=== PATIENT | male | born 1980 | race American Indian/Alaskan Native ===

== ENCOUNTER 2021-09-28 11:37 | Emergency (ER) | payer OTHER ==
[2021-09-28] MEDS ORDERED: SODIUM CHLORIDE 0.9% 1000 ML 1,000 ML IV ONE (12:50)
[2021-09-28] MEDS ORDERED: ONDANSETRON 4 MG/2 ML INJ IV ONE (12:50)
[2021-09-28] MEDS ORDERED: DICYCLOMINE 20 MG TAB PO ONE (12:50)
--- NOTE | 2021-09-28 12:56 | Emergency Department Report ---
HPI - General Chief Complaint: Abdominal Pain Time Seen by Provider: 09/28/21 12:23 - HPI HPI: 41-year-old -[place] male presents to the emergency department with complaint of a 2 to 3-day history of generalized abdominal cramping, nausea, and some diarrhea or loose stools. The patient also says that he has had a few episodes of bright red rectal bleeding with bowel movements. He says that the abdominal cramping pain will build up until he has to use the bathroom, have a bowel movement. After having a bowel movement he has improvement of his discomfort. He also complains of waking up yesterday with some chills, but denies any fever. He has a past medical history of HIV with an undetectable level. He took some Pepto-Bismol and Aleve for his symptoms without much relief. ED Past Medical Hx - Medications Home Medications: Home Medications Medication Instructions Recorded Confirmed Last Taken Type Dicyclomine [Bentyl] 10 mg PO QID PRN #20 capsule 09/28/21 Unknown Rx Metoclopramide [Reglan] 10 mg PO TID PRN #15 tab 09/28/21 Unknown Rx ED Review of Systems ROS: Stated complaint: STOMACH PAIN, NAUSEA, RECTAL BLEEDING Other details as noted in HPI Comment: All other systems reviewed and negative Constitutional: denies: chills, fever Eyes: denies: eye pain, vision change ENT: denies: ear pain, throat pain Respiratory: denies: cough, shortness of breath Cardiovascular: denies: chest pain, palpitations Gastrointestinal: abdominal pain, nausea, hematochezia Genitourinary: denies: dysuria, discharge Musculoskeletal: denies: back pain, arthralgia Skin: denies: rash, lesions Neurological: denies: headache, weakness Physical Exam - Physical Exam Vital Signs: Vital Signs 09/28/21 11:40 Temperature 98.2 F Pulse Rate 83 Respiratory 16 Rate Blood Pressure 146/103 O2 Sat by Pulse 95 Oximetry Physical Exam: GENERAL: The patient is well-developed well-nourished. HENT: Normocephalic. Atraumatic. Patient has moist mucous membranes. EYES: Extraocular motions are intact. NECK: Supple. Trachea is midline. CHEST/LUNGS: Clear to auscultation. There is no respiratory distress noted. HEART/CARDIOVASCULAR: Regular. There is no tachycardia. There is no murmur. ABDOMEN: Abdomen is soft. Mild generalized abdominal tenderness to palpation. No guarding. Patient has normal bowel sounds. There is no abdominal distention. SKIN: Skin is warm and dry. NEURO: The patient is awake, alert, and oriented. The patient is cooperative. The patient has no focal neurologic deficits. Normal speech. MUSCULOSKELETAL: There is no tenderness or deformity. There is no limitation range of motion. BACK: No CVA tenderness to palpation. RECTAL: Deferred ED Course Vital Signs 09/28/21 11:40 Temperature 98.2 F Pulse Rate 83 Respiratory 16 Rate Blood Pressure 146/103 O2 Sat by Pulse 95 Oximetry ED Medical Decision Making - Lab Data Result diagrams: 09/28/21 12:46 09/28/21 12:46 Lab Results 09/28/21 09/28/21 09/28/21 Range/Units 12:46 12:46 12:46 WBC 8.4 (4.5-11.0) K/mm3 RBC 5.39 H (3.65-5.03) M/mm3 Hgb 16.6 H (11.8-15.2) gm/dl Hct 49.1 H (35.5-45.6) % MCV 91 (84-94) fl MCH 31 (28-32) pg MCHC 34 (32-34) % RDW 13.7 (13.2-15.2) % Plt Count 267 (140-440) K/mm3 Lymph % (Auto) 14.3 (13.4-35.0) % Jones % (Auto) 9.6 H (0.0-7.3) % Eos % (Auto) 0.5 (0.0-4.3) % Baso % (Auto) 0.3 (0.0-1.8) % Lymph # (Auto) 1.2 (1.2-5.4) K/mm3 Jones # (Auto) 0.8 (0.0-0.8) K/mm3 Eos # (Auto) 0.0 (0.0-0.4) K/mm3 Baso # (Auto) 0.0 (0.0-0.1) K/mm3 Seg Neutrophils % 75.3 H (40.0-70.0) % Seg Neutrophils # 6.3 (1.8-7.7) K/mm3 PT 13.1 (12.2-14.9) Sec. INR 0.89 (0.87-1.13) Sodium 141 (137-145) mmol/L Potassium 3.3 L (3.6-5.0) mmol/L Chloride 103.7 (98-107) mmol/L Carbon Dioxide 22 (22-30) mmol/L Anion Gap 19 mmol/L BUN 6 L (9-20) mg/dL Creatinine 0.9 (0.8-1.3) mg/dL Estimated GFR > 60 ml/min BUN/Creatinine Ratio 7 % Glucose 110 H (75-100) mg/dL Calcium 9.4 (8.4-10.2) mg/dL Total Bilirubin 0.80 (0.1-1.2) mg/dL Direct Bilirubin < 0.2 (0-0.2) mg/dL Indirect Bilirubin 0.6 mg/dL AST 9 (5-40) units/L ALT 12 (7-56) units/L Alkaline Phosphatase 76 (35-129) units/L Total Protein 7.9 (6.3-8.2) g/dL Albumin 4.6 (3.9-5) g/dL Albumin/Globulin Ratio 1.4 % Lipase 40 (13-60) units/L - Radiology Data Radiology results: image reviewed interpreted by me: Chest x-ray does not show any acute process. There are no pleural effusions, obvious pneumonia and there is no pneumothorax. No widened mediastinum. Abdominal x-ray shows nonspecific nonobstructive bowel gas. No free air. There are some scattered air-fluid levels. - Medical Decision Making This patient presents with a 2 to 3-day history of some abdominal cramping pain, nausea without vomiting, diarrhea. On examination the abdomen is soft, nondistended and nontoxic in appearance. The patient does not appear in any acute distress. Patient's labs have been mostly unremarkable including CBC, metabolic panel and urinalysis. He did have some mild hypokalemia that was replaced with potassium chloride. Abdominal x-ray shows some air-fluid levels but otherwise does not have any obstructive pattern and there is no free air. Patient was given IV fluid, Bentyl, and 2 different antiemetics. Upon reevaluation he is feeling greatly improved and his abdominal pain is down to a 3 out of 10. Vital signs reassuring including being afebrile. He appears safe for discharge home and has been instructed to follow-up with primary care. He will return to the ER with any worsening of his symptoms or with any acute distress. Critical Care Time: No Critical care attestation.: If time is entered above; I have spent that time in minutes in the direct care of this critically ill patient, excluding procedure time. ED Disposition Clinical Impression: Rectal bleeding, Hypokalemia Abdominal pain Qualifiers: Abdominal location: generalized Qualified Code(s): R10.84 - Generalized abdominal pain Disposition: 01 HOME / SELF CARE / HOMELESS Is pt being admited?: No Condition: Stable Instructions: Rectal Bleeding, Abdominal Pain, Adult, Hypokalemia Additional Instructions: Please follow-up with a primary care physician in the next few days. I am giving you a referral for [facility] to follow-up regarding your abdominal pain and rectal bleeding. You may need a colonoscopy in the near future. Return to the emergency department with any worsening of your symptoms, new or concerning symptoms not addressed during this current emergency department visit, or with any acute distress. Prescriptions: Dicyclomine [Bentyl] 10 mg PO QID PRN #20 capsule PRN Reason: Pain , Severe (7-10) Metoclopramide [Reglan] 10 mg PO TID PRN #15 tab PRN Reason: Nausea Referrals: PRIMARY CARE, [Primary Care Provider] - 3-5 Days Forms: Work/School Release Form(ED) Time of Disposition: 14:53
[2021-09-28 13:34] LABS: Basophils % (Auto) 0.3 % (0.0-1.8); Eosinophils % (Auto) 0.5 % (0.0-4.3); Hematocrit 49.1 % (35.5-45.6); Hemoglobin 16.6 gm/dl (11.8-15.2); Lymphocytes # (Auto) 1.2 K/mm3 (1.2-5.4); Lymphocytes % (Auto) 14.3 % (13.4-35.0); Mean Corpuscular HGB Conc 34 % (32-34); Mean Corpuscular Volume 91 fl (84-94); Monocytes # (Auto) 0.8 K/mm3 (0.0-0.8); Monocytes % (Auto) 9.6 % (0.0-7.3); Platelet Count 267 K/mm3 (140-440); Red Blood Count 5.39 M/mm3 (3.65-5.03); Red Cell Distribution Width 13.7 % (13.2-15.2)
[2021-09-28 13:44] LABS: INR 0.89 (0.87-1.13)
[2021-09-28 13:53] LABS: Alanine Aminotransferase 12 units/L (7-56); Albumin 4.6 g/dL (3.9-5); BUN/Creatinine Ratio 7; Blood Urea Nitrogen 6 mg/dL (9-20); Calcium 9.4 mg/dL (8.4-10.2); Hemolysis Index 8
[2021-09-28 14:02] LABS: Bilirubin,Direct < 0.2 mg/dL (0-0.2)
--- NOTE | 2021-09-28 14:33 | XRay Report ---
Abdominal series with 1 view chest x-ray. INDICATION / CLINICAL INFORMATION: Abdominal pain. COMPARISON: None available. FINDINGS: Cardiomediastinal silhouette is within normal limits in size. No focal pulmonary consolidation or woodrow ma. TUBES / LINES: None. BOWEL GAS PATTERN: Multiple gas fluid levels throughout the small bowel. No gas-distended loops of in testines are visualized, although the relative lack of bowel gas does limit evaluation of the small b owel. FREE AIR / EXTRALUMINAL GAS: None seen. ADDITIONAL FINDINGS: No significant additional findings. IMPRESSION: Multiple gas fluid levels throughout the small bowel, possibly representing diarrheal-type illness. Signer Name: Lukas Todd MD Signed: 09/28/2021 2:28 PM Workstation Name: [id number]
[2021-09-28] MEDS ORDERED: METOCLOPRAMIDE 10 MG/2 ML INJ IV ONE (14:47)
[2021-09-28] MEDS ORDERED: POTASSIUM CHLORIDE ER 10 MEQ TAB PO NR (15:00)
[2021-09-28 16:04] LABS: Bilirubin,Urine NEG (Negative); Blood,Urine SM (Negative); Color,Urine Yellow (Yellow); Mucus,Urine FEW /HPF; Urobilinogen,Urine < 2.0 mg/dL (<2.0)
[2021-09-28 17:18] VITALS: BP 122/78
== END 2021-09-28 17:14 | disposition home or self-care (01) ==
LOC: ED 11:37
DX: K62.5 Hemorrhage of anus and rectum (principal); E87.6 Hypokalemia; R10.84 Generalized abdominal pain
CPT/HCPCS: 36415; 74022; 80048; 80076; 81001; 83690; 85025; 85610; 96361; 96374; 96375; 99284; J2405; J2765; J7030; Q0162

== ENCOUNTER 2021-10-03 22:21 | Emergency (ER) | payer OTHER ==
[2021-10-03 22:37] VITALS: BP 133/108
[2021-10-03] MEDS ORDERED: dexAMETHasone 20 MG/5 ML VIAL IM ONE (22:46)
[2021-10-03] MEDS ORDERED: KETOROLAC 60 MG/2 ML INJ IM ONE (22:46)
--- NOTE | 2021-10-03 22:46 | Emergency Department Report ---
ED Extremity Problem HPI - General Chief complaint: Extremity Injury, Lower Stated complaint: LEFT SIDE PAIN LEG/HIP Source: patient Mode of arrival: Ambulatory Limitations: No Limitations - History of Present Illness Initial comments: Patient is a 41-year-old -[place] male with past medical history of HIV who presents to the ED with complaint of acute onset persistent nontraumatic left hip pain that radiates to the left leg and thigh for the last 12 days, worse in the last 12 hours. Patient states that he is unable to bear weight on the left leg because of worsening left hip pain. Patient states that he has been taking muscle relaxant at home, but cannot remember the name of the medicine belonged to his mother. Patient denies fall, traumatic injury, heavy lifting, back pain, chest pain, shortness of breath, nausea and vomiting, hematuria, testicular pain, numbness and tingling or weakness of lower extremities bilaterally, urinary or bowel incontinence, saddle paresthesia, fever and chills. MD Complaint: extremity pain (Left hip pain radiating to left leg), joint paint (Left hip pain) -: Sudden, days(s) (2) Location: left, lower extremity (left hip pain, radiates to distal left leg) History of Same: No -: No myalgia, Yes arthralgia, No fever, No associated dyspnea, No associated chest pain Radiation: distal Severity scale (0 -10): 10 Quality: stabbing, aching, sharp, constant Consistency: constant Improves with: nothing Worsens with: weight bearing, walking, exertion, palpation Associated Symptoms: denies other symptoms, arthralgias (Left hip pain). denies: chest pain, shortness of breath, fever, myalgias, rash - Related Data Previous Rx's Medication Instructions Recorded Last Taken Type Dicyclomine [Bentyl] 10 mg PO QID PRN #20 capsule 09/28/21 Unknown Rx Metoclopramide [Reglan] 10 mg PO TID PRN #15 tab 09/28/21 Unknown Rx Baclofen 20 mg PO Q12H PRN #24 tablet 10/03/21 Unknown Rx Meloxicam [Mobic] 15 mg PO DAILY #30 tablet 10/03/21 Unknown Rx predniSONE [Deltasone] 40 mg PO QDAY #12 tab 10/03/21 Unknown Rx Allergies Allergy/AdvReac Type Severity Reaction Status Date / Time Penicillins Allergy Unknown Unknown Verified 09/28/21 13:21 ED Review of Systems ROS: Stated complaint: LEFT SIDE PAIN LEG/HIP Other details as noted in HPI Constitutional: denies: chills, fever Eyes: denies: eye pain, eye discharge, vision change ENT: denies: ear pain, throat pain Respiratory: denies: cough, shortness of breath, wheezing Cardiovascular: denies: chest pain, palpitations Endocrine: no symptoms reported Gastrointestinal: denies: abdominal pain, nausea, diarrhea Genitourinary: denies: urgency, dysuria Musculoskeletal: arthralgia (Left hip pain). denies: joint swelling Skin: denies: rash, lesions Neurological: denies: headache, weakness, paresthesias Psychiatric: denies: anxiety, depression Hematological/Lymphatic: denies: easy bleeding, easy bruising ED Past Medical Hx - Past Medical History Previous Medical History?: Yes Additional medical history: HIV - Surgical History Past Surgical History?: No - Medications Home Medications: Home Medications Medication Instructions Recorded Confirmed Last Taken Type Dicyclomine [Bentyl] 10 mg PO QID PRN #20 capsule 09/28/21 Unknown Rx Metoclopramide [Reglan] 10 mg PO TID PRN #15 tab 09/28/21 Unknown Rx Baclofen 20 mg PO Q12H PRN #24 tablet 10/03/21 Unknown Rx Meloxicam [Mobic] 15 mg PO DAILY #30 tablet 10/03/21 Unknown Rx predniSONE [Deltasone] 40 mg PO QDAY #12 tab 10/03/21 Unknown Rx ED Physical Exam - General Limitations: No Limitations General appearance: alert, in no apparent distress - Head Head exam: Present: atraumatic, normocephalic, normal inspection - Eye Eye exam: Present: normal appearance, PERRL, EOMI Pupils: Present: normal accommodation - ENT ENT exam: Present: normal exam, normal orophraynx, mucous membranes moist, TM's normal bilaterally, normal external ear exam - Neck Neck exam: Present: normal inspection, full ROM. Absent: tenderness - Respiratory Respiratory exam: Present: normal lung sounds bilaterally. Absent: respiratory distress, rhonchi, chest wall tenderness, accessory muscle use, decreased breath sounds, prolonged expiratory - Cardiovascular Cardiovascular Exam: Present: regular rate, normal rhythm, normal heart sounds. Absent: systolic murmur, diastolic murmur, rubs, gallop - GI/Abdominal GI/Abdominal exam: Present: soft, normal bowel sounds. Absent: tenderness, guarding, rebound, hyperactive bowel sounds, hypoactive bowel sounds, organomegaly, mass - Extremities Exam Extremities exam: Present: normal inspection, tenderness (Palpable left hip tenderness with limited range of motion due to pain), normal capillary refill. Absent: full ROM (Limited range of motion of left hip due to pain), pedal edema, joint swelling, calf tenderness - Back Exam Back exam: Present: normal inspection, full ROM. Absent: tenderness, CVA tenderness (R), CVA tenderness (L), muscle spasm, paraspinal tenderness, vertebr al tenderness - Neurological Exam Neurological exam: Present: alert, oriented X3, CN II-XII intact, normal gait, reflexes normal - Psychiatric Psychiatric exam: Present: normal affect, normal mood - Skin Skin exam: Present: warm, dry, intact, normal color. Absent: rash ED Course Vital Signs 10/03/21 22:35 Temperature 98.8 F Pulse Rate 80 Respiratory 15 Rate Blood Pressure 133/108 [Right] O2 Sat by Pulse 99 Oximetry ED Medical Decision Making - Medical Decision Making This is a 41-year-old -[place] male with past medical history of HIV who presents to the ED with complaint of acute onset persistent nontraumatic left hip pain that radiates to the left leg and thigh for the last 12 days, worse in the last 12 hours. Patient states that he is unable to bear weight on the left leg because of worsening left hip pain. Patient states that he has been taking muscle relaxant at home, but cannot remember the name of the medicine belonged to his mother. In the ED, patient is alert and oriented x3 and is not in any distress. Physical exam is positive for palpable left hip tenderness with limited range of motion on exam due to pain. Patient was treated for pain in the ED with Toradol and Decadron, for suspected acute left hip tendinitis or bursitis and sciatica. On reevaluation, patient's pain is well controlled medication. Patient will discharge home on pain medications and advised to follow-up with his primary care physician in 7 to 10 days for reevaluation or return to the ED immediately if symptoms get worse. - Differential Diagnosis Hip bursitis; hip tendinitis; hip muscle strain; muscle spasm; sciatica Critical care attestation.: If time is entered above; I have spent that time in minutes in the direct care of this critically ill patient, excluding procedure time. ED Disposition Clinical Impression: Tendinitis of left hip, Injury of sciatic nerve at hip and thigh level, left leg, initial encounter Bursitis of left hip Qualifiers: Hip bursitis location: unspecified Qualified Code(s): M70.72 - Other bursitis of hip, left hip Muscle strain of left lower extremity Qualifiers: Encounter type: initial encounter Qualified Code(s): S86.912A - Strain of unspecified muscle(s) and tendon(s) at lower leg level, left leg, initial encounter Disposition: HOME / SELF CARE / HOMELESS Is pt being admited?: No Does the pt Need Aspirin: No Condition: Stable Instructions: Hip Bursitis, [id number], Muscle Strain, [id number] Additional Instructions: Your pain is likely due to left hip bursitis versus tendinitis, sciatica or muscle strain. Therefore take pain medication with food, drink plenty of fluids and follow-up with your primary care physician in 7 to 10 days for reevaluation. Return to the emergency department immediately for further evaluation if your symptoms get worse. Prescriptions: Baclofen 20 mg PO Q12H PRN #24 tablet PRN Reason: Muscle Spasm predniSONE [Deltasone] 40 mg PO QDAY #12 tab Meloxicam [Mobic] 15 mg PO DAILY #30 tablet Referrals: [facility] [Provider Group] - 7-10 days Forms: Work/School Release Form(ED) Time of Disposition: 22:56 Print Language: MAORI
== END 2021-10-03 23:35 | disposition home or self-care (01) ==
LOC: ED 22:21
DX: S74.02XA Injury of sciatic nerve at hip and thigh level, left leg, initial encounter (principal); S86.912A Strain of unspecified muscle(s) and tendon(s) at lower leg level, left leg, initial encounter; M76.02 Gluteal tendinitis, left hip; M70.72 Other bursitis of hip, left hip; Z21 Asymptomatic human immunodeficiency virus [HIV] infection status; Z88.0 Allergy status to penicillin; X58.XXXA Exposure to other specified factors, initial encounter; Y93.89 Activity, other specified; Y92.89 Other specified places as the place of occurrence of the external cause; Y99.8 Other external cause status
CPT/HCPCS: 96372; 99282; J1100; J1885